=== PATIENT | male | born 1980 | race Caucasian/White ===

== ENCOUNTER 2018-01-03 15:32 | Emergency (ER) | payer BC ==
[2018-01-03 15:52] VITALS: BP 137/84
--- NOTE | 2018-01-03 16:28 | UC ---
Respiratory Complaint HPI - HPI Summary HPI Summary: C/O URI symptoms x 5 days. Seen 12/31 with negative flu test. Still coughing. Some wheezing. - History of Current Complaint Chief Complaint: UCRespiratory Stated Complaint: RECHECK - COUGH,CONGESTION,HEADACHE Time Seen by Provider: 01/03/18 16:20 Hx Obtained From: Patient Onset/Duration: Sudden Onset, Lasting Days - 5, Worse Since - Last 24 hours with wheezing and sinus pain. Severity Initially: Moderate Severity Currently: Moderate Pain Intensity: 0 Character: Cough: Nonproductive Alleviating Factors: Nothing Associated Signs And Symptoms: Positive: Dyspnea, Chills, Wheezing, Nasal Congestion, Hoarseness, Sinus Discomfort - Allergies/Home Medications Allergies/Adverse Reactions: Allergies Allergy/AdvReac Type Severity Reaction Status Date / Time Penicillins Allergy Rash Verified 01/03/18 15:48 PMH/Surg Hx/FS Hx/Imm Hx Previously Healthy: Yes - Surgical History Surgical History: Yes Surgery Procedure, Year, and Place: c1-c2 fusion - Family History Known Family History: Positive: Cardiac Disease, Hypertension - Social History Occupation: Employed Full-time Lives: With Family Alcohol Use: Occasionally Substance Use Type: None Smoking Status (MU): Never Smoked Tobacco - Immunization History Most Recent Tetanus Shot: 2012 Review of Systems Constitutional: Chills ENT: Sore Throat, Nasal Discharge, Sinus Pain/Tenderness Respiratory: Shortness Of Breath, Cough Is Patient Immunocompromised?: No All Other Systems Reviewed And Are Negative: Yes Physical Exam Triage Information Reviewed: Yes Appearance: No Pain Distress, Well-Nourished, Ill-Appearing Vital Signs: Initial Vital Signs Temp 97.9 F 01/03/18 15:48 Pulse 98 01/03/18 15:48 Resp 16 01/03/18 15:48 BP 137/84 01/03/18 15:48 Pulse Ox 99 01/03/18 15:48 Vital Signs Reviewed: Yes Eyes: Positive: Conjunctiva Clear ENT: Positive: Pharynx normal, Nasal congestion, TMs normal Neck exam: Normal Respiratory: Positive: Lungs clear - but, Wheezing - Expiratory wheezes with cough Cardiovascular Exam: Normal Musculoskeletal Exam: Normal Neurological Exam: Normal Psychological Exam: Normal Skin Exam: Normal UC Diagnostic Evaluation - Laboratory O2 Sat by Pulse Oximetry: 99 Respiratory Course/Dx - Differential Dx/Diagnosis Differential Diagnosis/HQI/PQRI: Asthma, Lower Resp Infection, Sinusitis Provider Diagnoses: Acute URI. Acute sinusitis. Acute bronchospasm Discharge - Sign-Out/Discharge Documenting (check all that apply): Patient Departure All imaging exams completed and their final reports reviewed: No Studies - Discharge Plan Condition: Stable Disposition: HOME Prescriptions: DOXYcycline CAP(*) [DOXYcycline 100MG CAP(*)] 100 mg PO BID #20 cap predniSONE TAB* [Deltasone 20 MG TAB*] 60 mg PO DAILY #18 tab Patient Education Materials: Upper Respiratory Infection (DC), Wheezing (ED), Sinusitis (ED), Doxycycline (By mouth), Prednisone (By mouth) Referrals: Zonia Gandara NP [Primary Care Provider] - - Billing Disposition and Condition Condition: STABLE Disposition: Home
== END 2018-01-03 16:41 | disposition home or self-care (01) ==
LOC: UCCORT 15:32
DX: J06.9 Acute upper respiratory infection, unspecified (principal); J32.9 Chronic sinusitis, unspecified; J98.01 Acute bronchospasm; Z88.0 Allergy status to penicillin
CPT/HCPCS: 99212; G0463